=== PATIENT | male | born 1975 | race Caucasian/White ===

== ENCOUNTER 2021-03-03 21:56 | Emergency (ER) | payer BC ==
[2021-03-03] MEDS ORDERED: Acetaminophen 500 MG Tab PO STA (22:20)
[2021-03-03] MEDS ORDERED: Lidocaine 2% Viscous Solution 15 ML UD PO ONE (22:20)
[2021-03-03] MEDS ORDERED: Ibuprofen 800 MG Tab PO STA (22:20)
--- NOTE | 2021-03-03 22:40 | EDM.PDOC ---
ED HPI GENERAL MEDICAL PROBLEM - General Stated Complaint: TOOTH PAIN Time Seen by Provider: 03/03/21 22:15 Source of Information: Reports: Patient, Family History Limitations: Reports: No Limitations - History of Present Illness INITIAL COMMENTS - FREE TEXT/NARRATIVE: Patient presented to the Ed because of dental pain over the left lower molar area and left upper molar,11/10. left upper and lower teeth Pain Score (Numeric/FACES): 10 - Related Data Allergies Allergy/AdvReac Type Severity Reaction Status Date / Time No Known Allergies Allergy Verified 03/03/21 22:23 Home Meds: Home Meds Amoxicillin 875 mg PO BID #20 tablet 03/03/21 [Rx] Ibuprofen 800 mg PO TID PRN #30 tablet 03/03/21 [Rx] ED ROS ENT - Review of Systems Review Of Systems: See Below Constitutional: Reports: No Symptoms HEENT: Reports: No Symptoms Respiratory: Reports: No Symptoms Cardiovascular: Reports: No Symptoms Endocrine: Reports: No Symptoms GI/Abdominal: Reports: No Symptoms : Reports: No Symptoms Musculoskeletal: Reports: No Symptoms Skin: Reports: No Symptoms Neurological: Reports: No Symptoms Psychiatric: Reports: No Symptoms ED EXAM, ENT - Physical Exam Exam: See Below Exam Limited By: No Limitations General Appearance: Alert, No Apparent Distress Ears: Normal External Exam, Normal Canal, Hearing Grossly Normal, Normal TMs Nose: Normal Inspection, Normal Mucousa Mouth/Throat: Dental Pain, Gum Swelling Head: Atraumatic, Normocephalic Neck: Normal Inspection, Supple, Non-Tender, Full Range of Motion Respiratory/Chest: No Respiratory Distress, Lungs Clear, Normal Breath Sounds, No Accessory Muscle Use, Chest Non-Tender Cardiovascular: Normal Peripheral Pulses, Regular Rate, Rhythm, No Edema, No Gallop, No JVD, No Murmur, No Rub GI/Abdominal: Normal Bowel Sounds, Soft, Non-Tender, No Organomegaly, No Distention, No Abnormal Bruit, No Mass Back: Normal Inspection, Full Range of Motion Extremities: Normal Inspection, Normal Range of Motion, Non-Tender, No Pedal Edema, Normal Capillary Refill Neurological: Alert, Oriented, CN II-XII Intact, Normal Cognition, Normal Gait, Normal Reflexes, No Motor/Sensory Deficits Psychiatric: Normal Affect Course - Vital Signs Text/Narrative:: Ibuprofen 800 mg PO x1 Tylenol 1000 mg PO x1 Tramadol 100 mg PO x1 Viscous lidocaine Last Recorded V/S: Last Vital Signs Temp 36.0 C L 03/03/21 22:10 Pulse 66 03/03/21 22:10 Resp 16 03/03/21 22:10 BP 151/100 H 03/03/21 22:10 Pulse Ox 98 03/03/21 22:10 - Orders/Labs/Meds Meds: Medications Discontinued Medications Generic Name Dose Route Start Last Admin Trade Name [id number] PRN Reason Stop Dose Admin Acetaminophen 1,000 mg 03/03/21 22:20 03/03/21 22:25 Acetaminophen 500 Mg Tab PO 03/03/21 22:21 1,000 mg NOW STA Administration Ibuprofen 800 mg 03/03/21 22:20 03/03/21 22:25 Ibuprofen 800 Mg Tab PO 03/03/21 22:21 800 mg NOW STA Administration Lidocaine HCl 15 ml 03/03/21 22:20 03/03/21 22:25 Lidocaine 2% Viscous Solution 15 Ml Cup PO 03/03/21 22:21 15 ml ONETIME ONE Administration Tramadol HCl 100 mg 03/03/21 22:47 03/03/21 22:50 Tramadol 50 Mg Tab PO 03/03/21 22:48 100 mg NOW STA Administration Departure - Departure Time of Disposition: 22:45 Disposition: Home, Self-Care 01 Condition: Good Clinical Impression: Pain, dental, Gingivitis - Discharge Information Prescriptions: Amoxicillin 875 mg PO BID #20 tablet Ibuprofen 800 mg PO TID PRN #30 tablet PRN Reason: Pain Instructions: Gingivitis, [id number], Dental Pain Referrals: PCP,None [Primary Care Provider] - Forms: ED Department Discharge Additional Instructions: Please read discharge instructions on dental pain and gum infection Gurgle with salt and water Take ibuprofen 800 mg with tylenol 1000 mg every 8 hours as needed for pain Viscous lidocaine as needed Follow up with your dentist Sepsis Event Note (ED) - Focused Exam Vital Signs: Vital Signs Temp Pulse Resp BP Pulse Ox 03/03/21 22:10 36.0 C L 66 16 151/100 H 98
[2021-03-03] MEDS ORDERED: traMADol 50 MG Tab PO STA (22:47)
== END 2021-03-03 23:00 | disposition home or self-care (01) ==
LOC: FB.ED 21:56
DX: K05.10 Chronic gingivitis, plaque induced (principal)
CPT/HCPCS: 99282; 99284; A9270